=== PATIENT | male | born 1985 | race Caucasian/White ===

== ENCOUNTER 2016-08-09 00:31 | Emergency (ER) | payer OTHER ==
[2016-08-09 00:32] VITALS: BP 150/80; PULSE 68; RESP 16; TEMP 98.1; O2SAT 97
[2016-08-09] MEDS ORDERED: TRAZ100T4 PO (00:39)
[2016-08-09] MEDS ORDERED: CYCL1TAB29 PO (01:23)
--- NOTE | 2016-08-09 01:23 | PD ---
HPI Chief Complaint: Back/ Neck Pain or Injury Time Seen by Provider: 01:10 Travel History International Travel<30 days: No Contact w/Intl Traveler<30days: No Traveled to known affect area: No History of Present Illness HPI Patient is a 30-year-old male presenting to emergency department for evaluation of right neck pain. Patient states he has working on his computer for the last week on a program. He was working tonight when he experienced a sharp pain in the lateral right neck. He reports that the pain radiated up to his cheek. He denied any visual changes, headache, weakness, sore throat, dysphagia. The pain started 30 minutes prior to arrival and he states since he has been in the emergency department it feels better. PFSH Past Medical History Medical History: Denies Significant Hx Diminished Hearing: No Past Surgical History Surgical History: No Previous Surgery Social History Alcohol Use: Yes (RARE) Tobacco Use: No (1/2PPD ) Substance Use: No Allergies-Medications (Allergen,Severity, Reaction): Coded Allergies: No Known Allergies (Unverified , 08/09/16) Reported Meds & Prescriptions Reported Meds & Active Scripts Active Flexeril (Cyclobenzaprine HCl) 10 Mg Tab 10 Mg PO TID PRN 10 Days Reported Trazodone (Trazodone HCl) 100 Mg Tab 100 Mg PO HS Review of Systems Except as stated in HPI: all other systems reviewed are Neg Musculoskeletal: Positive: Myalgias, Cramping Physical Exam Narrative GENERAL: Well-nourished, well-developed patient. SKIN: Focused skin assessment warm/dry. HEAD: Normocephalic. EYES: No scleral icterus. No injection or drainage. PERRLA, extraocular movements are intact. NECK: Supple, trachea midline. No JVD or lymphadenopathy. CARDIOVASCULAR: Regular rate and rhythm without murmurs, gallops, or rubs. RESPIRATORY: Breath sounds equal bilaterally. No accessory muscle use. GASTROINTESTINAL: Abdomen soft, non-tender, nondistended. MUSCULOSKELETAL: No cyanosis, or edema. Full range of motion with rotation, flexion, extension of neck. No tenderness to palpation and neck musculature. No spinal tenderness or step-off noted. BACK: Nontender without obvious deformity. No CVA tenderness. Data Data Last Documented VS Vital Signs Date Time Temp Pulse Resp B/P Pulse Ox O2 Delivery O2 Flow Rate FiO2 08/09/16 00:32 98.1 68 16 150/80 97 Room Air Orders Cyclobenzaprine (Flexeril) (08/09/16 01:30) MDM Medical Decision Making Medical Screen Exam Complete: Yes Emergency Medical Condition: Yes Interpretation(s) Vital Signs Date Time Temp Pulse Resp B/P Pulse Ox O2 Delivery O2 Flow Rate FiO2 08/09/16 00:32 98.1 68 16 150/80 97 Room Air Differential Diagnosis Strain versus spasm versus neuropathy versus other Narrative Course Patient is a 30-year-old male that presented to the emergency department for evaluation of right neck pain/spasm. 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 Patient is neurologically intact, physical examination appears consistent with spasm. Patient was given dose of Flexeril prior to leaving the emergency department. He was advised to change positions and engage in range of motion exercises to avoid muscle stiffness while working on his computer. He was advised to follow- up with his primary doctor or return to emergency department for any new or worsening symptoms. He verbalized understanding of instructions. Patient stable for discharge Diagnosis Primary Impression: Neck muscle spasm Referrals: Primary Care Physician Patient Instructions: General Instructions, Muscle Spasm (ED), Neck Strain Exercises (GEN) Additional Instructions: Follow-up with your primary doctor [facility] Engage in range of motion exercises Return to emergency department immediately for any new or worsening symptoms Take medications as directed Med/Other Pt SpecificInfo: Prescription(s) given Scripts Cyclobenzaprine (Flexeril)10 Mg Tab10 Mg PO TID PRN (MUSCLE SPASM) 10 Days Ref 0 Prov:Edelmira Bardales 08/09/16 Disposition: 01 DISCHARGE HOME Condition: Stable Edelmira Bardales Aug 09, 2016 01:23
[2016-08-09] MEDS ORDERED: CYCLOBENZAPRINE HCL 10 MG TAB PO ONE (01:30)
== END 2016-08-09 01:37 | disposition home or self-care (01) ==
LOC: NEPD 00:31
DX: M62.838 Other muscle spasm (principal)
CPT/HCPCS: 99283